=== PATIENT | male | born 1985 | race Caucasian/White ===

== ENCOUNTER 2018-06-05 04:59 | Emergency (ER) | payer OTHER ==
[~2018-06-05] VITALS: Ht 188 cm; Wt 103.4 kg
[~2018-06-05 04:59] MED LIST: BACTRIM DS TAB1 EACH PO; CIPROFLOXACIN500 M1 PO; FLOMAX0.4 MG PO; HYDROCODONE-APA1 TA1 PO; IBUPROFEN 800800 M1 PO; KEFLEX500 MG PO; MEDROLDOSEPACK PO; NOHOMEMEDICATIONS; NORCO 5-325 TA1 EACH PO; PHENERGAN-CODE120 ML PO; PYRIDIUM200 MG PO; TAMSULOSIN HCL0.4 M1 PO; ULTRAM50 MG PO; ZOFRAN ODT4 MG PO; ZOFRAN4 MG PO; ZPAK PO
[2018-06-05] MEDS ORDERED: BACTRIM DS TAB1 EACH PO (05:25)
[2018-06-05 05:36] VITALS: BP 127/76
== END 2018-06-05 05:36 | disposition home or self-care (01) ==
LOC: M.ERS 04:59
DX: S61.431A Puncture wound without foreign body of right hand, initial encounter (principal); F17.210 Nicotine dependence, cigarettes, uncomplicated; Z88.1 Allergy status to other antibiotic agents; Z87.442 Personal history of urinary calculi; W50.3XXA Accidental bite by another person, initial encounter; Y93.89 Activity, other specified; Y92.89 Other specified places as the place of occurrence of the external cause; Y99.8 Other external cause status